=== PATIENT | female | born 1980 | race Caucasian/White ===

== ENCOUNTER → 2023-12-17 13:36 | Outpatient (REF) | payer BC, SELFPAY ==
[2023-12-17 14:53] LABS: % Basophils 0.7 % (0-2); % Eosinophils 1.4 % (0-6); % Immature Granulocytes 0.2 % (0-0.5); % Monocytes 5.3 % (1.7-9.3); % Neutrophils 62.4 % (42.2-75.2); Absolute Eosinophils 0.1 10^3/uL (0-0.7); Absolute Lymphocytes 1.8 10^3/uL (1.2-3.4); Absolute Monocytes 0.3 10^3/uL (0.1-0.6); Absolute Neutrophils 3.7 10^3/uL (1.4-6.5); Hematocrit 38.1 % (37.0-47.0); Hemoglobin 13.4 g/dL (12.0-16.0); Mean Corp Hgb Conc. 35.2 g/dL (33.0-37.0); Mean Corpuscular Hgb 31.5 pg (27.0-31.0); Mean Corpuscular Volume 89.4 fL (81.0-99.0); Mean Platelet Volume 10.2 fL (7.4-10.4); Nucleated Red Blood Cells % 0 %; Platelet Count 272 10^3/uL (130-400); Red Blood Cell Count 4.26 10^6/uL (4.20-5.40); Red Cell Dist. Width 12.2 % (11.5-14.5); White Blood Cell Count 5.8 10^3/uL (4.8-10.8)
[2023-12-17 14:58] LABS: ALT (SGPT) 46 U/L (0-35); AST (SGOT) 39 U/L (14-36); Albumin 4.7 g/dl (3.5-5.0); Alkaline Phosphatase 85 U/L (38-126); Blood Urea Nitrogen 11 mg/dl (7-17); Calcium 9.5 mg/dl (8.4-10.2); Carbon Dioxide 26 mmol/L (22-30); Chloride 100 mmol/L (98-107); Glucose 100 mg/dl (70-99); Potassium 4.2 mmol/L (3.5-5.1); Sodium 137 mmol/L (135-145); Total Protein 7.5 g/dl (6.3-8.2); eGFR > 60.00
[2023-12-17 15:14] LABS: Vitamin D, 25-OH*** 20.2 ng/mL (30-80)
[2023-12-17 16:03] LABS: Folate 10.9 ng/ml (2.76-20); Vitamin B12 338 pg/ml (239-931)
[2023-12-21 11:21] LABS: Ferritin 16.2 ng/ml (6.24-137)
== END ==
LOC: CLAB 13:36
PROVIDERS: ATTENDING PHYSICIAN Internal Medicine Rheumatology; FAMILY PHYSICIAN Family Medicine
DX: E55.9 Vitamin D deficiency, unspecified (principal); G62.9 Polyneuropathy, unspecified; M79.7 Fibromyalgia
CPT/HCPCS: 36415; 80053; 82306; 82607; 82728; 82746; 85025

== ENCOUNTER 2024-01-05 14:20 | Outpatient (RCR) | payer BC, SELFPAY ==
[2024-01-05 14:42] VITALS: BP 110/67
[2024-01-05] MEDS: INJECTAFER 265 MG IV (14:45)
[2024-01-05 15:23] VITALS: BP 111/68
== END 2024-01-07 09:32 | disposition home or self-care (01) ==
LOC: OID 14:20
PROVIDERS: ATTENDING PHYSICIAN Psychiatry & Neurology Neurology; FAMILY PHYSICIAN Family Medicine
DX: D50.9 Iron deficiency anemia, unspecified (principal)
CPT/HCPCS: 96365; J1439

== ENCOUNTER → 2024-01-14 10:01 | Outpatient (REF) | payer BC, SELFPAY | LOC: RAD 10:01 | PROVIDERS: ATTENDING PHYSICIAN Family Medicine | DX: M54.50 Low back pain, unspecified (principal) | CPT/HCPCS: 72110 ==

== ENCOUNTER → 2024-05-12 12:04 | Outpatient (REF) | payer BC, SELFPAY | LOC: CPAP 12:04 | PROVIDERS: ATTENDING PHYSICIAN Family Medicine | DX: Z01.419 Encounter for gynecological examination (general) (routine) without abnormal findings (principal); Z12.4 Encounter for screening for malignant neoplasm of cervix | CPT/HCPCS: G0123 ==

== ENCOUNTER → 2024-05-17 17:35 | Outpatient (REF) | payer BC, SELFPAY ==
[2024-05-17 17:59] LABS: % Basophils 0.5 % (0-2); % Eosinophils 1.3 % (0-6); % Immature Granulocytes 0.2 % (0-0.5); % Lymphocytes 27.9 % (20.5-51.1); % Monocytes 4.4 % (1.7-9.3); % Neutrophils 65.7 % (42.2-75.2); Absolute Eosinophils 0.1 10^3/uL (0-0.7); Absolute Lymphocytes 1.7 10^3/uL (1.2-3.4); Absolute Monocytes 0.3 10^3/uL (0.1-0.6); Absolute Neutrophils 4.1 10^3/uL (1.4-6.5); Hematocrit 38.5 % (37.0-47.0); Hemoglobin 13.8 g/dL (12.0-16.0); Mean Corp Hgb Conc. 35.8 g/dL (33.0-37.0); Mean Corpuscular Hgb 32.9 pg (27.0-31.0); Mean Corpuscular Volume 91.9 fL (81.0-99.0); Mean Platelet Volume 10.1 fL (7.4-10.4); Nucleated Red Blood Cells % 0 %; Platelet Count 249 10^3/uL (130-400); Red Blood Cell Count 4.19 10^6/uL (4.20-5.40); Red Cell Dist. Width 11.3 % (11.5-14.5); White Blood Cell Count 6.2 10^3/uL (4.8-10.8)
[2024-05-17 18:10] LABS: ALT (SGPT) 43 U/L (0-35); AST (SGOT) 37 U/L (14-36); Albumin 4.8 g/dl (3.5-5.0); Alkaline Phosphatase 80 U/L (38-126); Blood Urea Nitrogen 9 mg/dl (7-17); Calcium 9.4 mg/dl (8.4-10.2); Carbon Dioxide 29 mmol/L (22-30); Chloride 100 mmol/L (98-107); Glucose 87 mg/dl (70-99); HDL Cholesterol 40 mg/dl; LDL Cholesterol, Calculated 147 mg/dl; Potassium 4.2 mmol/L (3.5-5.1); Sodium 140 mmol/L (135-145); Total Bilirubin 0.8 mg/dl (0.2-1.3); Total Cholesterol 220 mg/dl (50-199); Total Protein 7.3 g/dl (6.3-8.2); Triglyceride 167 mg/dl (10-149); Very Low Density Lipoprotein 33 mg/dl (0-30); eGFR > 60.00
[2024-05-17 18:27] LABS: Vitamin D, 25-OH*** 28.7 ng/mL (30-80)
[2024-05-17 18:45] LABS: Ferritin 94.2 ng/ml (6.24-137)
[2024-05-17 19:00] LABS: Vitamin B12 353 pg/ml (239-931)
== END ==
LOC: CLAB 17:35
PROVIDERS: ATTENDING PHYSICIAN Family Medicine
DX: Z12.31 Encounter for screening mammogram for malignant neoplasm of breast (principal); Z01.419 Encounter for gynecological examination (general) (routine) without abnormal findings; Z12.4 Encounter for screening for malignant neoplasm of cervix; G43.909 Migraine, unspecified, not intractable, without status migrainosus; R74.8 Abnormal levels of other serum enzymes; E55.9 Vitamin D deficiency, unspecified; R79.0 Abnormal level of blood mineral; R79.89 Other specified abnormal findings of blood chemistry; E78.00 Pure hypercholesterolemia, unspecified
CPT/HCPCS: 36415; 80053; 80061; 82306; 82607; 82728; 85025

== ENCOUNTER → 2024-06-03 10:19 | Outpatient (REF) | payer BC, SELFPAY ==
[2024-06-03 12:13] LABS: Iron 132 ug/dl (37-170)
[2024-06-03 12:19] LABS: Hepatitis B Surface Antigen Negative (Negative)
[2024-06-03 13:46] LABS: Hepatitis A Antibody, Total Negative (Negative); Hepatitis B Surface Antibody Positive; Hepatitis C Antibody Negative (Negative)
[2024-06-05 02:28] LABS: Endomysial IgA Antibody Titer <1:10 (<1:10)
[2024-06-05 05:42] LABS: Mitochondrial M2 Ab, IgG 2.2 Units (0.0-24.9)
[2024-06-05 05:52] LABS: ANA, IgG Reflex to HEp-2 None Detected (None Detected)
== END ==
LOC: CLAB 10:19
PROVIDERS: ATTENDING PHYSICIAN Family Medicine
DX: R74.8 Abnormal levels of other serum enzymes (principal)
CPT/HCPCS: 36415; 82784; 83516; 83540; 86038; 86231; 86381; 86706; 86708; 86803; 87340

== ENCOUNTER → 2024-06-21 07:31 | Outpatient (REF) | payer BC, SELFPAY | LOC: HWRAD 07:31 | PROVIDERS: ATTENDING PHYSICIAN Family Medicine | DX: R74.8 Abnormal levels of other serum enzymes (principal) | CPT/HCPCS: 76700 ==

== ENCOUNTER → 2024-06-28 07:19 | Outpatient (REF) | payer BC, SELFPAY | LOC: WDC 07:19 | PROVIDERS: ATTENDING PHYSICIAN Family Medicine | DX: Z12.31 Encounter for screening mammogram for malignant neoplasm of breast (principal) | CPT/HCPCS: 77063; 77067 ==

== ENCOUNTER → 2025-05-09 10:31 | Outpatient (REF) | payer BC, SELFPAY ==
[2025-05-09 11:01] LABS: ALT (SGPT) 35 U/L (0-35); AST (SGOT) 34 U/L (14-36); Albumin 4.7 g/dl (3.5-5.0); Alkaline Phosphatase 66 U/L (38-126); Blood Urea Nitrogen 8 mg/dl (7-17); Calcium 9.0 mg/dl (8.4-10.2); Carbon Dioxide 27 mmol/L (22-30); Chloride 106 mmol/L (98-107); Glucose 96 mg/dl (70-99); HDL Cholesterol 46 mg/dl; LDL Cholesterol, Calculated 145 mg/dl; Potassium 3.9 mmol/L (3.5-5.1); Sodium 140 mmol/L (135-145); Total Protein 7.3 g/dl (6.3-8.2); Very Low Density Lipoprotein 40 mg/dl (0-30); eGFR > 60.00
[2025-05-09 11:17] LABS: Hematocrit 41.1 % (37.0-47.0); Hemoglobin 13.9 g/dL (12.0-16.0); Mean Corp Hgb Conc. 33.8 g/dL (33.0-37.0); Mean Corpuscular Volume 92.8 fL (81.0-99.0); Nucleated Red Blood Cells % 0 %; Platelet Count 253 10^3/uL (130-400); Red Cell Dist. Width 11.6 % (11.5-14.5); Vitamin D, 25-OH*** 40.9 ng/mL (30-80)
[2025-05-09 11:50] LABS: Vitamin B12 360 pg/ml (239-931)
== END ==
LOC: CLAB 10:31
PROVIDERS: ATTENDING PHYSICIAN Family Medicine; OTHER PHYSICIAN Internal Medicine Rheumatology
DX: E78.00 Pure hypercholesterolemia, unspecified (principal); R79.0 Abnormal level of blood mineral; M79.7 Fibromyalgia; E53.8 Deficiency of other specified B group vitamins; E55.9 Vitamin D deficiency, unspecified; G62.9 Polyneuropathy, unspecified
CPT/HCPCS: 36415; 80053; 80061; 82306; 82607; 85025

== ENCOUNTER → 2025-05-16 08:52 | Outpatient (REF) | payer BC, SELFPAY | LOC: WDC 08:52 | PROVIDERS: ATTENDING PHYSICIAN Family Medicine; FAMILY PHYSICIAN Family Medicine | DX: N63.12 Unspecified lump in the right breast, upper inner quadrant (principal); R92.30 Dense breasts, unspecified | CPT/HCPCS: 76642; 77062; 77066 ==

== ENCOUNTER → 2025-06-02 09:59 | Outpatient (REF) | payer BC, SELFPAY | LOC: EMG 09:59 | PROVIDERS: ATTENDING PHYSICIAN Family Medicine | DX: N63.12 Unspecified lump in the right breast, upper inner quadrant (principal); R92.30 Dense breasts, unspecified; R20.9 Unspecified disturbances of skin sensation; R26.81 Unsteadiness on feet; E53.8 Deficiency of other specified B group vitamins; R20.0 Anesthesia of skin | CPT/HCPCS: 95886; 95912 ==